=== PATIENT | female | born 1975 | race Caucasian/White ===

== ENCOUNTER 2017-02-03 21:34 | Emergency (ER) | payer MEDICARE, MEDICAID ==
[~2017-02-03] VITALS: Ht 157.5 cm; Wt 48.9 kg
[2017-02-03 21:37] VITALS: BP 111/75
[2017-02-03] MEDS ORDERED: ONDANSETRON ODT 4 MG PO ONE (22:30)
[2017-02-03] MEDS ORDERED: ONDANSETRON ODT 4 MG ONE (22:35)
[2017-02-03 22:45] LABS: HEMOGLOBIN 13.2 g/dL (11.7-16.4)
[2017-02-03 22:55] LABS: BLOOD UREA NITROGEN 18 mg/dL (7-18)
== END 2017-02-04 00:32 | disposition home or self-care (01) ==
LOC: ED 23:57
DX: K29.00 Acute gastritis without bleeding (principal); R11.2 Nausea with vomiting, unspecified; Z59.0 Homelessness
CPT/HCPCS: 36415; 80048; 82040; 85025; 99284; Q0162

== ENCOUNTER 2017-03-29 23:45 | Emergency (ER) | payer MEDICAID, MEDICARE ==
[~2017-03-29] VITALS: Ht 152.4 cm; Wt 50.0 kg
[2017-03-29 23:56] VITALS: BP 110/60
== END 2017-03-30 00:47 | disposition home or self-care (01) ==
LOC: ED 03-30 00:41
DX: Z00.00 Encounter for general adult medical examination without abnormal findings (principal); F20.9 Schizophrenia, unspecified
CPT/HCPCS: 99283

== ENCOUNTER 2017-07-28 01:50 | Emergency (ER) | payer MEDICARE ==
[~2017-07-28] VITALS: Ht 157.5 cm; Wt 54.0 kg
[2017-07-28 01:56] VITALS: BP 93/63
== END 2017-07-28 03:45 | disposition home or self-care (01) ==
LOC: ED 03:32
DX: J00 Acute nasopharyngitis [common cold] (principal); Z59.0 Homelessness; Z88.8 Allergy status to other drugs, medicaments and biological substances
CPT/HCPCS: 99281

== ENCOUNTER 2020-04-04 16:00 | Inpatient (IN) | payer MEDICARE ==
[~2020-04-04] VITALS: Ht 160 cm; Wt 49.2 kg
[2020-04-04] MEDS ORDERED: DOCUSATE 100 MG CAPSULE PO PRN (16:30)
[2020-04-04] MEDS ORDERED: OLANZAPINE 5 MG TABLET PO PRN (16:30)
[2020-04-04] MEDS ORDERED: POLYETHYLENE GLYCOL 17 GM PACKET PO PRN (16:30)
[2020-04-04] MEDS ORDERED: ACETAMINOPHEN 325 MG TABLET PO PRN (16:30)
[2020-04-04] MEDS ORDERED: LORazepam 2 MG/ML, 1ML IM PRN (16:30)
[2020-04-04] MEDS ORDERED: BISACODYL 10 MG SUPP PR PRN (16:30)
[2020-04-04] MEDS ORDERED: PLEASE ENTER HEIGHT AND WEIGHT MC SCH (18:00)
[2020-04-04 18:21] VITALS: BP 99/65
[2020-04-04 19:44] VITALS: BP 99/60
[2020-04-04] MEDS: OLANZAPINE 10 MG TABLET PO SCH (20:49)
[2020-04-05] MEDS ORDERED: zyprexa (02:50)
[2020-04-05 06:30] LABS: FREE T4 (FREE THYROXINE) 0.93 ng/dL (0.76-1.46); LDL/HDL RATIO 0.8 (0.5-3.0)
[2020-04-05 07:00] VITALS: BP 98/62
[2020-04-05] MEDS: NICOTINE 21 MG/24 HR PATCH.TD24 TD SCH (09:00)
[2020-04-05] MEDS: OLANZAPINE 10 MG TABLET PO SCH ×2 (09:24→20:30)
[2020-04-05 19:24] VITALS: BP 86/55
[2020-04-05] MEDS: CARBAMAZEPINE XR 200 MG TABLET PO SCH (20:30)
[2020-04-06 07:00] VITALS: BP 73/43
[2020-04-06] MEDS: NICOTINE 21 MG/24 HR PATCH.TD24 TD SCH (09:00)
[2020-04-06] MEDS: OLANZAPINE 10 MG TABLET PO SCH ×2 (09:20→20:37)
[2020-04-06 11:11] VITALS: BP 88/58
[2020-04-06] MEDS: MULTIVITAMIN 1 TABLET PO SCH (12:17)
[2020-04-06] MEDS: FOLIC ACID 1 MG TABLET PO SCH (12:17)
[2020-04-06] MEDS: THIAMINE 100MG TABLET PO SCH (12:18)
[2020-04-06 19:22] VITALS: BP 73/46
[2020-04-06] MEDS: CARBAMAZEPINE XR 200 MG TABLET PO SCH (20:37)
[2020-04-07 07:45] VITALS: BP 94/57
[2020-04-07] MEDS: FOLIC ACID 1 MG TABLET PO SCH (08:14)
[2020-04-07] MEDS: MULTIVITAMIN 1 TABLET PO SCH (08:14)
[2020-04-07] MEDS: THIAMINE 100MG TABLET PO SCH (08:14)
[2020-04-07] MEDS: OLANZAPINE 10 MG TABLET PO SCH ×2 (08:14→20:58)
[2020-04-07] MEDS: NICOTINE 21 MG/24 HR PATCH.TD24 TD SCH (09:00)
[2020-04-07 19:15] VITALS: BP 71/69
[2020-04-07] MEDS: CARBAMAZEPINE XR 200 MG TABLET PO SCH (20:58)
[2020-04-07 21:00] VITALS: BP 84/47
[2020-04-08 07:25] VITALS: BP 108/70
[2020-04-08] MEDS: FOLIC ACID 1 MG TABLET PO SCH (08:22)
[2020-04-08] MEDS: THIAMINE 100MG TABLET PO SCH (08:22)
[2020-04-08] MEDS: OLANZAPINE 10 MG TABLET PO SCH ×2 (08:22→20:42)
[2020-04-08] MEDS: MULTIVITAMIN 1 TABLET PO SCH (08:22)
[2020-04-08] MEDS: NICOTINE 21 MG/24 HR PATCH.TD24 TD SCH (08:25)
[2020-04-08 19:15] VITALS: BP 132/90
[2020-04-08] MEDS: CARBAMAZEPINE XR 200 MG TABLET PO SCH (20:42)
[2020-04-09 07:22] VITALS: BP 107/79
[2020-04-09] MEDS: NICOTINE 21 MG/24 HR PATCH.TD24 TD SCH (08:00)
[2020-04-09] MEDS: FOLIC ACID 1 MG TABLET PO SCH (08:06)
[2020-04-09] MEDS: THIAMINE 100MG TABLET PO SCH (08:06)
[2020-04-09] MEDS: MULTIVITAMIN 1 TABLET PO SCH (08:06)
[2020-04-09] MEDS: OLANZAPINE 10 MG TABLET PO SCH ×2 (08:07→21:20)
[2020-04-09 20:13] VITALS: BP 95/57
[2020-04-09] MEDS: CARBAMAZEPINE XR 200 MG TABLET PO SCH (21:20)
[2020-04-10 07:18] VITALS: BP 106/70
[2020-04-10] MEDS: FOLIC ACID 1 MG TABLET PO SCH (08:36)
[2020-04-10] MEDS: THIAMINE 100MG TABLET PO SCH (08:36)
[2020-04-10] MEDS: MULTIVITAMIN 1 TABLET PO SCH (08:36)
[2020-04-10] MEDS: OLANZAPINE 10 MG TABLET PO SCH ×2 (08:37→20:26)
[2020-04-10] MEDS: NICOTINE 21 MG/24 HR PATCH.TD24 TD SCH (08:42)
[2020-04-10] MEDS ORDERED: LORazepam 1MG TABLET PO PRN (17:16)
[2020-04-10 19:55] VITALS: BP_SYST 105; BP_SYST 89; BP_DIAS 57; BP_DIAS 61
[2020-04-10] MEDS: CARBAMAZEPINE XR 200 MG TABLET PO SCH (20:26)
[2020-04-11 07:40] VITALS: BP 88/53
[2020-04-11] MEDS: MULTIVITAMIN 1 TABLET PO SCH (08:13)
[2020-04-11] MEDS: OLANZAPINE 10 MG TABLET PO SCH (08:13)
[2020-04-11] MEDS: FOLIC ACID 1 MG TABLET PO SCH (08:13)
[2020-04-11] MEDS: THIAMINE 100MG TABLET PO SCH (08:13)
[2020-04-11] MEDS: NICOTINE 21 MG/24 HR PATCH.TD24 TD SCH (08:14)
[2020-04-11] MEDS ORDERED: NICO-487 TD (13:43)
[2020-04-11] MEDS ORDERED: OLAN10TA9 PO (13:43)
[2020-04-11] MEDS ORDERED: CARB200T2 PO (13:43)
[2020-04-11] MEDS ORDERED: MULT1TAB60 PO (13:43)
== END 2020-04-11 14:27 | disposition home or self-care (01) | DRG 885 ==
LOC: 3E 17:34
PROVIDERS: ADMIT Psychiatry & Neurology Psychosomatic Medicine; ATTEND Psychiatry & Neurology Psychosomatic Medicine
DX: F20.0 Paranoid schizophrenia (principal); F15.20 Other stimulant dependence, uncomplicated; F29 Unspecified psychosis not due to a substance or known physiological condition; F17.210 Nicotine dependence, cigarettes, uncomplicated; R45.1 Restlessness and agitation; F19.10 Other psychoactive substance abuse, uncomplicated; F10.10 Alcohol abuse, uncomplicated; Z88.8 Allergy status to other drugs, medicaments and biological substances; Z91.19 Patient's noncompliance with other medical treatment and regimen; Z79.899 Other long term (current) drug therapy
CPT/HCPCS: 36415; 71045; 80061; 82140; 84439; 84443; 93005